=== PATIENT | female | born 1990 | race Caucasian/White ===

== ENCOUNTER 2018-11-03 17:47 | Emergency (ER) | payer MEDICAID ==
[~2018-11-03] VITALS: Ht 160 cm; Wt 85.0 kg
[2018-11-03 20:45] VITALS: BP 126/74
[2018-11-03] MEDS ORDERED: IBUPROFEN 600MG TABLET PO ONE (20:45)
== END 2018-11-03 20:46 | disposition home or self-care (01) ==
LOC: ER 18:45
DX: S16.1XXA Strain of muscle, fascia and tendon at neck level, initial encounter (principal); V49.49XA Driver injured in collision with other motor vehicles in traffic accident, initial encounter; Y93.89 Activity, other specified; Y92.89 Other specified places as the place of occurrence of the external cause; Y99.8 Other external cause status
CPT/HCPCS: 99282; 99283

== ENCOUNTER 2022-01-11 18:40 | Emergency (ER) | payer MEDICAID ==
[~2022-01-11] VITALS: Ht 160 cm; Wt 89.0 kg
[2022-01-11 18:53] VITALS: BP 141/91
[2022-01-11] MEDS ORDERED: ACETAMINOPHEN 325MG TABLET PO ONE (23:30)
[2022-01-11] MEDS ORDERED: TETANUS, DIPHTHERIA, PERTUSSIS VAC/PF 0.5ML (>10YR OLD) IM ONE (23:30)
[2022-01-12] MEDS ORDERED: TETANUS, DIPHTHERIA, PERTUSSIS VAC/PF 0.5ML (>10YR OLD) IM ONE (01:30)
[2022-01-12] MEDS ORDERED: CEFAZOLIN 1000MG PREMIX 50 ML IV ONE ×2 (02:45→03:15)
[2022-01-12] MEDS ORDERED: CLIN-194 MT (03:02)
[2022-01-12] MEDS ORDERED: HYDR-4001 MT (03:02)
[2022-01-12] MEDS ORDERED: CEFAZOLIN 1000MG PREMIX 50 ML IV STA (03:03)
[2022-01-12] MEDS ORDERED: CEFAZOLIN 1000MG PREMIX 50 ML IV NR (03:15)
== END 2022-01-12 03:50 | disposition home or self-care (01) ==
LOC: ER 18:40
DX: S02.2XXB Fracture of nasal bones, initial encounter for open fracture (principal); Y08.89XA Assault by other specified means, initial encounter; Y93.89 Activity, other specified; Y92.89 Other specified places as the place of occurrence of the external cause; Y99.8 Other external cause status; J45.909 Unspecified asthma, uncomplicated
CPT/HCPCS: 70486; 81025; 90471; 90715; 96365; 99291; J0690; Z7610